=== PATIENT | female | born 1950 | race African-American/Black ===

== ENCOUNTER 2019-08-28 17:34 | Emergency (ER) | payer MEDICARE, SELFPAY ==
[2019-08-28 17:51] VITALS: BP 175/68; PULSE 77; RESP 16; TEMP 36.9; O2SAT 100
--- NOTE | 2019-08-28 17:55 | ED.GENADULT ---
HPI - General Adult General Chief complaint: Upper Respiratory Infection Stated complaint: Ear/Nose/Throat Time Seen by Provider: 08/28/19 17:56 Source: patient and RN notes reviewed Mode of arrival: ambulatory Limitations: no limitations History of Present Illness HPI narrative: This is a 69 years old female presents to the office for an evaluation of ears pain/pressure for three days. Associated with sore throat, headache/sinus pain. She took Mucinex which has helped with her congestion. She also try pusc-cpc-zyawubx eardrop which has helped her left ear a little bit that she can heal a bit better today. Related Data Home Medications Medication Instructions Recorded Confirmed allopurinol 1 mg PO DAILY 08/28/19 08/28/19 atorvastatin 1 mg DAILY 08/28/19 08/28/19 colchicine [Colcrys] 1 mg DAILY 08/28/19 08/28/19 dulaglutide [Trulicity] 1 mg SUBCUT DAILY 08/28/19 08/28/19 hydralazine 1 mg PO TID 08/28/19 08/28/19 insulin glargine [Lantus U-100 1 unit SUBCUT DAILY 08/28/19 08/28/19 Insulin] metoprolol succinate 1 mg PO DAILY 08/28/19 08/28/19 Allergies Allergy/AdvReac Type Severity Reaction Status Date / Time codeine Allergy Unknown Unknown Verified 08/28/19 17:59 tramadol Allergy Unknown Unknown Verified 08/28/19 17:59 Review of Systems Review of Systems: Narrative: CONSTITUTIONAL: Denies fever, chills ENT: Reports rhinorrhea, congestion, sore throat, otalgia. CARDIOVASCULAR: Denies chest pain RESPIRATORY: Denies dyspnea, cough GASTROINTESTINAL: Denies abdominal pain, nausea, vomiting, diarrhea. SKIN: Denies rash MUSCULOSKELETAL: Denies acute back pain NEUROLOGIC: Denies lightheaded PMFSH Past Medical History Medical History (Updated 08/28/19 @ 18:11 by ANGIE Barajas) Diabetes mellitus, type II HLD (hyperlipidemia) HTN (hypertension) Surgical History Surgical History (Updated 08/28/19 @ 18:02 by ANIGE Barajas) History of heart artery stent Social History Social History Gender identity (if verbalized by the patient): Female Comments At time of signature, I agree with nursing past medical, surgical, social and family history. There is no relevant family history pertinent to the presenting complaint. Exam Narrative: Exam Narrative: GENERAL: This is a well-nourished, well-developed patient, in no apparent distress. EYES: PERRL. EMOI. Sclera clear/white. Vision is grossly intact. EARS: External ears normal, auditory canals appears erythema and edematous with tragal tenderness. TMs normal without perforation. Hearing grossly intact. NOSE: External nose normal with no obvious nasal discharge, nares without redness, no rhinorrhea. THROAT: Mucous membranes moist, posterior pharynx clear. NECK: Neck supple, non-tender without lymphadenopathy, masses or thyromegaly. CARDIOVASCULAR: Regular rate and rhythm without murmurs, gallops, or rubs. RESPIRATORY: Clear to auscultation. Breath sounds equal bilaterally. No wheezes, rales, or rhonchi. NEURO: awake, alert, and oriented to person, place and time. There were no obvious focal neurologic abnormalities. Steady gait Ame Coma Scale Eye Opening: Spontaneous 4 [place] Coma Scale Motor: Obeys Commands 6 Ame Coma Scale Verbal: Oriented 5 Course Vital Signs Vital signs: Vital Signs Temperature 98.4 F 08/28/19 17:51 Pulse Rate 77 08/28/19 17:51 Respiratory Rate 16 08/28/19 17:51 Blood Pressure 175/68 H 08/28/19 17:51 Pulse Oximetry 100 08/28/19 17:51 Temperature 98.4 F 08/28/19 17:51 Pulse Rate 77 08/28/19 17:51 Respiratory Rate 16 08/28/19 17:51 Blood Pressure 175/68 H 08/28/19 17:51 Pulse Oximetry 100 08/28/19 17:51 Medical Decision Making MDM Narrative Medical decision making narrative: Elevated BP noted, I recommend patient follow-up with her doctor in 2 weeks to get her blood pressure rechecked. Discharge instructions reviewed w
== END 2019-08-28 18:15 | disposition home or self-care (01) ==
PROVIDERS: Emergency Provider Nurse Practitioner; PCP Internal Medicine
DX: H60.93 Unspecified otitis externa, bilateral (principal); J32.9 Chronic sinusitis, unspecified; E11.9 Type 2 diabetes mellitus without complications; E78.5 Hyperlipidemia, unspecified; I10 Essential (primary) hypertension; Z95.5 Presence of coronary angioplasty implant and graft; Z79.4 Long term (current) use of insulin
CPT/HCPCS: 87081; 87880; 99213; G0463

== ENCOUNTER 2020-10-18 14:29 | Emergency (ER) | payer MEDICARE, SELFPAY ==
[2020-10-18 14:40] VITALS: BP 121/63; PULSE 81; RESP 18; TEMP 36.3; O2SAT 100
--- NOTE | 2020-10-18 15:15 | ED.GENADULT ---
HPI - General Adult General Chief complaint: Urogenital-Female Stated complaint: uti Source: patient Mode of arrival: ambulatory Limitations: no limitations History of Present Illness HPI narrative: Mrs. Ramesh is a pleasant 70 y/o AA female. PMHx includes: HTN, HLD, DM II, Gout, Obesity. Presents to [facility] [place] [facility] today with acute complaints of urinary frequency and dysuria, worsening > the past 72 hours. She reports unusual urinary frequency. No fever, chills. No abdominal pain, pelvic pain, flank pain, hematuria. She is w/o additional acute complaints of illness upon exam. Related Data Home Medications Medication Instructions Recorded Confirmed allopurinol 1 mg PO DAILY 08/28/19 08/28/19 atorvastatin 1 mg DAILY 08/28/19 08/28/19 colchicine [Colcrys] 1 mg DAILY 08/28/19 08/28/19 dulaglutide [Trulicity] 1 mg SUBCUT DAILY 08/28/19 08/28/19 hydralazine 1 mg PO TID 08/28/19 08/28/19 insulin glargine [Lantus U-100 1 unit SUBCUT DAILY 08/28/19 08/28/19 Insulin] metoprolol succinate 1 mg PO DAILY 08/28/19 08/28/19 Benadryl 10/18/20 aspirin PO 10/18/20 dulaglutide [Trulicity] mg SUBCUT 10/18/20 gabapentin 10/18/20 glipizide mg PO 10/18/20 hydrocodone-acetaminophen 10/18/20 isosorbide mononitrate mg PO 10/18/20 omeprazole 10/18/20 Allergies Allergy/AdvReac Type Severity Reaction Status Date / Time codeine Allergy Unknown Unknown Verified 08/28/19 17:59 tramadol Allergy Unknown Unknown Verified 08/28/19 17:59 Review of Systems Review of Systems: CONSTITUTIONAL: Denies fever, chills, sweats. EYES: Denies visual changes, redness, discharge. ENT: Denies rhinorrhea, congestion, sore throat, otalgia. CARDIOVASCULAR: Denies chest pain, palpitations, edema. RESPIRATORY: Denies dyspnea, wheezing, cough GASTROINTESTINAL: Denies abdominal pain, nausea, vomiting, diarrhea. GENITOURINARY: Positive dysuria, urgency, frequency. No hematuria, abnormal discharge SKIN: Denies rash or itching. MUSCULOSKELETAL: Denies acute back pain, joint pain, or myalgia. NEUROLOGIC: Denies numbness, or focal weakness. PSYCHIATRIC: Denies anxiety or depression. All systems reviewed & are unremarkable except as noted in HPI and below PMFSH Past Medical History Medical History Diabetes mellitus, type II HLD (hyperlipidemia) HTN (hypertension) Surgical History Surgical History History of heart artery stent Social History Social History Gender identity (if verbalized by the patient): Female Exam Narrative: GENERAL: This is a well-nourished, well-developed adult, in no apparent distress. HEAD: normocephalic, atraumatic. EYES: PERRL. Sclera clear/white. EARS: External ears normal, auditory canals clear and without drainage, TMs normal. NOSE: External nose normal. Positive Rhinorrhea, no obstruction, nares patent. THROAT: Mucous membranes moist, posterior pharynx clear. No exudates. NECK: Neck supple, non-tender without lymphadenopathy, masses or thyromegaly. CARDIOVASCULAR: Regular rate and rhythm without murmurs, gallops, or rubs. RESPIRATORY: Clear to auscultation. Breath sounds equal bilaterally. No wheezes, rales, or rhonchi. GASTROINTESTINAL: Abdomen soft, non-tender, nondistended. Bowel sounds are active. No guarding. No CVA tenderness appreciated. SKIN: warm, intact with no suspicious lesions or rash, good texture and turgor. NEURO: Alert, active, and age appropriate. No focal neurologic deficits. EXTREMITIES: Negative. Course Course Emergency Course: -70 y/o AA female. -Presents with c/o urinary frequency, urgency, dysuria X 72 hours. -Appears non-toxic. Proceed with Urine Dipstick Vital Signs Vital signs: Vital Signs Temperature 36.3 C L 10/18/20 14:40 Pulse Rate 81 10/18/20 14:40 Respiratory Rate 18 10/18/20 14:40 Blood Pre
--- NOTE | 2020-10-18 15:39 | PC.NURSE ---
was given water, unable to give ua spec.
== END 2020-10-18 16:02 | disposition home or self-care (01) ==
PROVIDERS: Emergency Provider Nurse Practitioner Adult Health; PCP Internal Medicine
DX: N39.0 Urinary tract infection, site not specified (principal); E11.9 Type 2 diabetes mellitus without complications; E78.5 Hyperlipidemia, unspecified; I10 Essential (primary) hypertension; Z95.5 Presence of coronary angioplasty implant and graft; M10.9 Gout, unspecified; E66.9 Obesity, unspecified; Z68.35 Body mass index [BMI] 35.0-35.9, adult
CPT/HCPCS: 81003; 87086; 99213; G0463

== ENCOUNTER 2021-05-11 12:37 | Inpatient (IN) | payer MEDICARE, SELFPAY ==
[2021-05-11] VITALS (35 sets, daily range): BP systolic 92–153; BP diastolic 50–123; PULSE 78–94; RESP 12–22; TEMP 35.8–36.4; O2SAT 85–100; BMI 30.4
--- NOTE | ~2021-05-11 | XR_ITS ---
EXAMINATION: XR chest 1V INDICATION: Weakness TECHNIQUE: AP view of the chest is obtained. COMPARISON: 10/15/2018 FINDINGS: There is chronic atelectasis or scarring of the left lung base. No acute airspace opacities are identified. There is no pleural effusion or pneumothorax. The cardiomediastinal silhouette is st able. Coronary artery stents are noted. IMPRESSION: 1. Chronic atelectasis or scarring of the left lung base. Reviewed, dictated and finalized at location F. UR BURNER
--- NOTE | ~2021-05-11 | CT_ITS ---
EXAMINATION: CT brain wo con INDICATION: Weakness, headache, confusion COMPARISON: None TECHNIQUE: Standard unenhanced head CT. The dose-length product (DLP) was 605.33 mGy-cm. The mA was a djusted according to patient size. Iterative reconstruction technique was employed. FINDINGS: There is no acute intraparenchymal hemorrhage. No evidence of mass lesion. No evidence of a cute infarction. There is mild periventricular and subcortical hypodensity probably related to small vessel ischemic disease. There is mild prominence of the sulci and ventricles related to cerebral atr ophy. Intracranial calcified cerebral atherosclerosis is noted. There are no extra-axial collections. There is no mass effect or midline shift. The orbits and soft tissues are unremarkable. There is com plete opacification of the right maxillary sinus with sclerosis of the lynn, consistent with chronic sinusitis. IMPRESSION: 1. No acute intracranial abnormality. 2. Age related findings. 3. Sinus disease. Reviewed, dictated and finalized at location F. STITCH HEMMER
--- NOTE | ~2021-05-11 | MR_ITS ---
EXAMINATION: MR lumbar spine wo con DATE: 05/12/2021 10:28 INDICATION: Lumbar posterior spinal fusion with suspected osteomyelitis. TECHNIQUE: Magnetic resonance imaging (MRI) of the lumbar spine was performed without intravenous con trast. Sequences included sagittal T2-weighted FSE, sagittal T2-weighted FS FSE, sagittal T1-weighted FSE, and axial T2-weighted FSE. COMPARISON: None FINDINGS: Study is significantly limited by poor uusuzg-ra-ozfga, some motion artifact and poor fat saturation. Postoperative changes of instrumented lower lumbar posterior spinal . There are bilateral vertical r ods and pedicle screws which appear to be located at the bilateral L3 pedicles and at the level of L5 . With the screws projecting slightly lateral to the expected location of the L5 pedicles. There is m ild lower lumbar levocurvature. Appears to be increased marrow signal in the region of the left pedic le and transverse process of L4 which raises concern for malignancy or osteomyelitis. Also raising barlow spicion for ostomy myelitis is suggestion of an erosion at the left posterior body of L3. IMPRESSION: 1. Nondiagnostic study due to poor urinnt-jx-resqn, motion and failed fat saturation which nonetheles s raises some concern for osteomyelitis associated with a instrumented lower lumbar posterior spinal fusion specifically at the left pedicle of L4 and at the right posterior vertebral body of L3. Would recommend further evaluation with pre and postcontrast lumbar spine CT. Reviewed, dictated and finalized at location A. S UNLOADING EQUIPMENT TENDER IMPRESSION: 1. Nondiagnostic study due to poor crabit-kj-wqvke, motion and failed fat satur ation which nonetheless raises some concern for osteomyelitis associated with a instrumented lower lumbar posterior spinal fusion specifically at the left ped icle of L4 and at the right posterior vertebral body of L3. Would recommend fur ther evaluation with pre and postcontrast lumbar spine CT.
--- NOTE | ~2021-05-11 | CT_ITS ---
EXAMINATION: CT cervical spine wo con EXAM DATE: 05/12/2021 19:32 INDICATION: Cervical spondylosis. Weakness. TECHNIQUE: Spiral CT of the cervical spine was performed without contrast. Axial images were reviewe d. Coronal and sagittal reformatted images cervical spine were also reviewed. The dose-length produc t (DLP) for this examination was 523.49 mGy-cm. The exposure was tailored according to patient size (auto mA exposure control), and iterative reconstruction (ASIR) was used as additional dose reduction technique. There is no prior study for comparison. FINDINGS: No endplate erosive change, cervical discitis or osteomyelitis. The C2-5 vertebral bodies a re fused. There is moderate to severe loss of the lower cervical and upper thoracic disc height. Ther e is moderate to severe right neural foraminal stenosis at C5-6 and left neural foraminal stenosis at C6-7, less at the other cervical levels. Mild cervical thoracic dextrocurvature which could be posit ional. The odontoid process is intact. The lateral masses of C1 line up with C2. Prevertebral soft t issue and pre-dens space are within normal limits. Moderate to severe cervical facet arthropathy. Mil d to moderate central canal stenosis at C6-7, less at the other levels. Paraspinal soft tissue is unr emarkable. IMPRESSION: 1. No acute cervical findings. 2. Upper cervical fusion. 3. Arthropathy with the right C5-6 and left C6-7 neural foramen most narrowed. Reviewed, dictated and finalized at location G. AND COAL TRANSPORT OPERATOR
--- NOTE | ~2021-05-11 | CT_ITS ---
EXAMINATION: CT thoracic lumbar wo con EXAM DATE: 05/12/2021 19:32 INDICATION: Abnormal MR concerning for discitis/osteomyelitis. Spinal surgery, wound not healing. TECHNIQUE: Spiral CT thoracolumbar spine was performed without contrast. Axial, coronal and sagittal images of the thoracic spine were reviewed. Axial, coronal and sagittal images of the lumbar spine we re reviewed. The dose-length product (DLP) for this examination was 2135.84 mGy-cm. The exposure was tailored according to patient size (auto mA exposure control), and iterative reconstruction (ASIR) w as used as additional dose reduction technique. Correlation is made to MR from earlier same date. FINDINGS: THORACIC SPINE: Patient has diffuse idiopathic skeletal hyperostosis (DISH), moderate-sized bridging endplate osteophytes. Mild mid thoracic dextroscoliosis. There are no acute fractures identified no e ndplate erosive change, no evidence of discitis or osteomyelitis. Moderate loss of most thoracic disc height. Mild thoracic facet arthropathy. Paraspinal soft tissue is unremarkable. Basilar dependent a irspace disease probably atelectasis. Cholecystectomy clips. LUMBAR SPINE: Partial osseous fusion of the L3-4 vertebral bodies and L5-S1. Posterior pedicular scre ws, fusion at the L3 and L5 pedicles. There is endplate erosive change at L3-4, subsidence of interbo dy devices and also 12 mm retrolisthesis L3 on L4. Probably moderate central canal stenosis at this l evel although patient has had L3 laminectomies. There is lordotic angulation at L3-4. Large amount of lucency surrounding the L5 screws. Some paraspinal inflammation suspected centered at the L3-4 level . There are no acute fractures identified. IMPRESSION: 1. Findings highly suspicious for L3-4 discitis/osteomyelitis, lucency surrounding L5 pedicular screw s also suspicious for infection. Paraspinal inflammation. 2. L3-4 grade 2 retrolisthesis, and probable moderate central canal stenosis but patient has had L3 l aminectomies. Reviewed, dictated and finalized at location G. IMPRESSION: 1. Findings highly suspicious for L3-4 discitis/osteomyelitis, lucency surround ing L5 pedicular screws also suspicious for infection. Paraspinal inflammation. 2. L3-4 grade 2 retrolisthesis, and probable moderate central canal stenosis bu t patient has had L3 laminectomies.
--- NOTE | 2021-05-11 14:50 | ECG_ITS ---
Measurements Intervals [place] Rate: 81 P: 79 LA: 169 QRS: -15 QRSD: 113 T: 19 QT: 396 QTc: 462 Interpretive Statements SINUS RHYTHM INTRAVENTRICULAR CONDUCTION DELAY BORDERLINE R WAVE PROGRESSION, ANTERIOR LEADS INFERIOR INFARCT, AGE INDETERMINATE BASELINE ARTIFACT- I, II, AVR, AVL, V1-V2, V6 ABNORMAL ECG Electronically Signed On 05-11-2021 18:12:38 MARKETING SECRETARY by Ricardo Razo D.O.
--- NOTE | 2021-05-11 14:51 | ED.WEAKNESS ---
HPI - Weakness General Chief complaint: Weakness Stated complaint: weakness Time Seen by Provider: 05/11/21 14:14 Source: patient and RN notes reviewed Mode of arrival: EMS Limitations: other (poor historian) History of Present Illness HPI Narrative: This is a 71 year female with history of DM, hypertension, spinal stenosis , nonambulatory who presents from skilled nursing for evaluation for weakness. Patient is alert and oriented x 3. She states she thinks she is here for low back pain but she is not sure. She remembers going to eat breakfast today and then next thing she knows she was in an ambulance. EMS reports patient told them she was confused earlier so she came to ER. She states her low back pain is chronic back pain. She does reports intermittent frontal headache for 2 weeks. She denies cough, chest pain, sob, nausea, vomiting, or abdominal pain. She denies falling or passing out. It seems unclear why she is here. MD Complaint: generalized weakness Related Data Home Medications Medication Instructions Recorded Confirmed acetaminophen 650 mg PO QID PRN 05/11/21 05/11/21 albuterol sulfate 2 puff INHALATION Q4H PRN 05/11/21 05/11/21 allopurinol 100 mg PO DAILY 05/11/21 05/11/21 amlodipine 10 mg PO DAILY 05/11/21 05/11/21 ascorbic acid (vitamin C) [Vitamin 500 mg PO BID 05/11/21 05/11/21 C] aspirin [Aspir-81] 81 mg PO DAILY 05/11/21 05/11/21 atorvastatin 40 mg PO HS 05/11/21 05/11/21 cholecalciferol (vitamin D3) 50 mcg PO DAILY 05/11/21 05/11/21 [Vitamin D3] cyanocobalamin (vitamin B-12) 1,000 mcg PO DAILY 05/11/21 05/11/21 [Vitamin B-12] docusate sodium 100 mg PO BID 05/11/21 05/11/21 dulaglutide [Trulicity] 1.5 mg SUBCUT WEEKLY 05/11/21 05/11/21 epoetin sosa-epbx [Retacrit] 10,000 unit SUBCUT WEEKLY 05/11/21 05/11/21 ferrous sulfate 325 mg PO BID 05/11/21 05/11/21 folic acid 1 mg PO DAILY 05/11/21 05/11/21 insulin glargine-yfgn 20 unit SUBCUT HS 05/11/21 05/11/21 insulin lispro See Rx Instructions .ROUTE .COMPLEX 05/11/21 05/11/21 linaclotide [Linzess] 290 mcg PO DAILY 05/11/21 05/11/21 metoclopramide HCl 5 mg PO BID 05/11/21 05/11/21 metoprolol succinate 100 mg PO DAILY 05/11/21 05/11/21 minocycline 100 mg PO BID 05/11/21 05/11/21 nitroglycerin 4 mg SUBLINGUAL Q5MIN PRN 05/11/21 05/11/21 olanzapine 5 mg PO HS 05/11/21 05/11/21 ondansetron HCl 4 mg PO QID PRN 05/11/21 05/11/21 oxycodone 5 mg PO Q4H PRN 05/11/21 05/11/21 pantoprazole 40 mg PO DAILY 05/11/21 05/11/21 peg 400-propylene glycol [Systane 1 drp EACH EYE TID PRN 05/11/21 05/11/21 Ultra] polyethylene glycol 1 ea MISCELLANEOUS DAILY PRN 05/11/21 05/11/21 promethazine 25 mg PO QID PRN 05/11/21 05/11/21 sennosides-docusate sodium 1 tab-cap PO BID PRN 05/11/21 05/11/21 [Senokot-S] sodium hypochlorite [Dakin's 1 applic TOPICAL Q12H 05/11/21 05/11/21 Solution] Allergies Allergy/AdvReac Type Severity Reaction Status Date / Time codeine Allergy Unknown Unknown Verified 05/11/21 14:25 tramadol Allergy Unknown Unknown Verified 05/11/21 14:25 Review of Systems Review of Systems: All systems reviewed & are unremarkable except as noted in HPI and below PMFSH Past Medical History Medical History (Updated 05/11/21 @ 22:00 by Kaity Zendejas MD) Diabetes mellitus, type II HLD (hyperlipidemia) HTN (hypertension) Spinal stenosis Surgical History Surgical History History of heart artery stent Hx of cholecystectomy Previous back surgery Family History Family History Mother Hypertension Diabetes mellitus Gout Arthritis Social History Social History Smoking status: Never smoker Alcohol intake: never Substance use: never Gender identity (if verbalized by the patient): Female Spiritual care concerns: Yes (johovah witness no blood products)
--- NOTE | 2021-05-11 15:02 | PC.NURSE ---
Patient off unit to Radiology.
[2021-05-11 15:22] LABS: Basophils Percent Auto 0.2 % (0.2-1.2); Eosinophils Absolute Auto 0.1 K/mm3 (0-0.3); Eosinophils Percent Auto 0.4 % (0-4.4); Hemoglobin 9.1 g/dL (12.0-15.0); Immature Granulocyte Percent A 0.9 % (0-0.5); Lymphocytes Absolute Auto 1.98 K/mm3 (0.9-3.2); Mean Corpuscular HGB Conc 32.5 g/dl (32-36); Mean Corpuscular Volume 89.2 fl (80-100); Mean Platelet Volume 10.4 fl (7.4-10.4); Monocytes Absolute Auto 0.9 K/mm3 (0.1-0.6); Monocytes Percent Auto 7.5 % (2.6-8.5); Neutrophils Absolute Auto 8.6 K/mm3 (1.3-6.7); Platelet Count Result 182 k/mm3 (150-375); Red Blood Count 3.14 M/mm3 (4.2-5.4); Red Cell Distribution Width 18.6 % (11.5-14.5); White Blood Count 11.7 K/mm3 (4.5-10.0)
[2021-05-11 15:31] LABS: Lactic Acid Reflex 2.3 mmol/L (0.7-2.1)
[2021-05-11 15:32] LABS: Prothrombin Time 12.9 Seconds (11.1-14.7)
[2021-05-11 15:33] LABS: Alanine Aminotransferase 20 U/L (4-35); Albumin Level 4.1 g/dL (3.5-5.1); Alkaline Phosphatase 76 U/L (38-126); Anion Gap 13 mmol/L (8-16); Aspartate Amino Transferase 45 U/L (14-36); Bilirubin,Total 0.6 mg/dL (0.2-1.3); Blood Urea Nitrogen 33 mg/dL (7-17); Carbon Dioxide 26 mmol/L (22-30); Chloride 100 mmol/L (98-107); Estimated CRCL calculation 25 ml/min; Estimated Glomerular Filt Rate 24; Glucose 223 mg/dL (65-110); Lipase 81 U/L (23-300); Partial Thromboplastin Time 29.3 SECONDS (22.3-36.8); Potassium 4.2 mmol/L (3.4-5.0); Sodium 139 mmol/L (137-145)
[2021-05-11 15:45] LABS: Add Urine Microscopic? YES; Appearance Urine Turbid (Clear); Bacteria Urine Trace /hpf; Bilirubin Urine Negative (Negative); Blood Urine Negative (Negative); Color Urine Yellow (Yellow); Glucose Urine UA Negative (Negative); Ketones Urine Negative (Negative); Leukocyte Esterase Ur 3+ LEU/UL (Negative); Nitrate Urine Negative (Negative); Protein Urine 2+ mg/dL (Negative); Specific Grav Ur 1.009 (1.001-1.035); Squamous Epithelial Cell Urine Moderate /hpf (Few); WBC Clumps Urine Present /HPF; WBC Urine >75 /hpf
[2021-05-11 15:47] LABS: Troponin I < 0.012 ng/mL (0.000-0.034)
[2021-05-11] MEDS: SODIUM CHLORIDE 0.9% IV 1,000 ML 999 ML IV CONT (16:21)
[2021-05-11] MEDS: oxyCODONE HCL (*CRX) 5 MG TAB IR PO ×2 (17:17→22:09)
[2021-05-11 18:20] LABS: Reflex Lactic Acid Yes or No Add Lactic
--- NOTE | 2021-05-11 18:58 | ADMGEN ---
This patient, Mahsa Ramesh, was admitted to 2 Medical Room 244-. Patient/family oriented to hospital policies and general routines including ID bracelet, bed and alarms, visiting hours, pain management, procedures, bathroom and other care routines, personal items, smoking policy, room service/diet, and visiting hours. Information on how to activate the Rapid Response Team has been discussed. Patient/Family are encouraged to report perceived risks to care and to ask questions if they do not understand what they are told or what they should do.
[2021-05-11] MEDS: SODIUM CHLORIDE 0.9% IV 1,000 ML 125 ML IV CONT (19:26)
[2021-05-11 19:29] LABS: Lactic Acid 1.5 mmol/L (0.7-2.1)
--- NOTE | 2021-05-11 20:19 | PM.IMHP ---
H&P: HPI History of Present Illness Date/Time: 05/11/21 20:19 Chief Complaint: 71 years old female with past medical history of diabetes, hypertension spinal stenosis with multiple surgical intervention with open wound presented to the hospital with generalized weakness back pain confusion her confusion has significantly improved patient complains of chronic pain in the back patient on oxycodone at the facility and the ER patient was found to have UTI also on my evaluation patient has wounds to the lower back wound Care was consulted CT scan of the back will be ordered orthopedic consult Review of Systems Review of Systems: All systems reviewed & are unremarkable except as noted in HPI and below PMFSH Past Medical History Medical History (Updated 05/11/21 @ 20:25 by Melisa Montemayor MD) Diabetes mellitus, type II HLD (hyperlipidemia) HTN (hypertension) Spinal stenosis Surgical History Surgical History History of heart artery stent Hx of cholecystectomy Previous back surgery Family History Family History Mother Hypertension Diabetes mellitus Gout Arthritis Social History Social History Smoking status: Never smoker Alcohol intake: never Substance use: never Gender identity (if verbalized by the patient): Female Spiritual care concerns: Yes (johovah witness no blood products) Meds Home Medications and Allergies Home Medications Medication Instructions Recorded Confirmed Type acetaminophen 650 mg PO QID PRN 05/11/21 History albuterol sulfate 2 puff INHALATION Q4H PRN 05/11/21 History allopurinol 100 mg PO DAILY 05/11/21 History amlodipine 10 mg PO DAILY 05/11/21 History ascorbic acid (vitamin C) [Vitamin 500 mg PO BID 05/11/21 History C] aspirin [Aspir-81] 81 mg PO DAILY 05/11/21 History atorvastatin 40 mg PO HS 05/11/21 History cholecalciferol (vitamin D3) 50 mcg PO DAILY 05/11/21 History [Vitamin D3] cyanocobalamin (vitamin B-12) 1,000 mcg PO DAILY 05/11/21 History [Vitamin B-12] docusate sodium 100 mg PO BID 05/11/21 History dulaglutide [Trulicity] 1.5 mg SUBCUT WEEKLY 05/11/21 History epoetin sosa-epbx [Retacrit] 10,000 unit SUBCUT WEEKLY 05/11/21 History ferrous sulfate 325 mg PO BID 05/11/21 History folic acid 1 mg PO DAILY 05/11/21 History insulin glargine-yfgn 20 unit SUBCUT HS 05/11/21 History insulin lispro SUBCUT TIDWMEAL 05/11/21 History linaclotide [Linzess] 290 mcg PO DAILY 05/11/21 History metoclopramide HCl 5 mg PO BID 05/11/21 History metoprolol succinate 100 mg PO DAILY 05/11/21 History minocycline 100 mg PO BID 05/11/21 History nitroglycerin 4 mg SUBLINGUAL Q5MIN PRN 05/11/21 History olanzapine 5 mg PO HS 05/11/21 History ondansetron HCl 4 mg PO QID PRN 05/11/21 History oxycodone 5 mg PO Q4H PRN 05/11/21 History pantoprazole 40 mg PO DAILY 05/11/21 History peg 400-propylene glycol [Systane 1 drp EACH EYE TID PRN 05/11/21 History Ultra] polyethylene glycol 1 ea DAILY 05/11/21 History promethazine 25 mg PO QID PRN 05/11/21 History sennosides-docusate sodium 1 tab-cap PO BID PRN 05/11/21 History [Senokot-S] Allergies Allergy/AdvReac Type Severity Reaction Status Date / Time codeine Allergy Unknown Unknown Verified 05/11/21 14:25 tramadol Allergy Unknown Unknown Verified 05/11/21 14:25 Vital Signs Vital Signs - 24 hr 05/11/21 13:24 05/11/21 14:25 05/11/21 14:26 Temperature 96.5 F L Pulse Rate 78 87 88 Respiratory Rate 19 18 20 Blood Pressure 92/50 L 127/100 H Pulse Oximetry 100 100 85 L 05/11/21 14:27 05/11/21 14:30 05/11/21 14:32 Temperature Pulse Rate 88 86 82 Respiratory Rate 21 H 18 16 Blood Pressure 104/61 Pulse Oximetry 100 100 05/11/21 14:45 05/11/21 14:46 05/11/21 14:47 Temperature Pulse Rate 83 8
[2021-05-11 20:25] LABS: Glucose Point of Care 266 mg/dl (65-105)
[2021-05-11] MEDS: INSULIN GLARGINE (*BKC) 100 UNITS/ML 10 UNITS SUB-Q (22:04)
[2021-05-11] MEDS: ATORVASTATIN 40 MG TABLET PO (22:04)
[2021-05-11] MEDS: ASCORBIC ACID 500 MG TABLET PO (22:04)
[2021-05-11] MEDS: DOCUSATE SODIUM 100 MG CAPSULE PO (22:05)
[2021-05-11] MEDS: OLANZapine DISPERTAB 5 MG PO (22:05)
[2021-05-11] MEDS: ENOXAPARIN 40 MG/0.4 ML SYRINGE SUB-Q (22:05)
[2021-05-11] MEDS: MINOCYCLINE HCL 50 MG CAPSULE 100 MG PO (23:30)
[2021-05-11] MEDS: ACETAMINOPHEN 325 MG TABLET 650 MG PO (23:32)
[2021-05-12 05:31] VITALS: BP 133/66; PULSE 76; RESP 18; TEMP 36.8; O2SAT 100
[2021-05-12 06:06] LABS: Basophils Percent Auto 0.1 % (0.2-1.2); Eosinophils Absolute Auto 0.1 K/mm3 (0-0.3); Eosinophils Percent Auto 0.9 % (0-4.4); Hematocrit 22.2 % (37.0-47.0); Hemoglobin 7.3 g/dL (12.0-15.0); Immature Granulocyte Absolute 0.06 K/mm3 (0.00-0.031); Immature Granulocyte Percent A 0.7 % (0-0.5); Lymphocytes Absolute Auto 2.07 K/mm3 (0.9-3.2); Lymphocytes Percent Auto 24.5 % (18.3-44.2); Mean Corpuscular HGB Conc 32.9 g/dl (32-36); Mean Corpuscular Hemoglobin 29.2 pg (26-34); Mean Corpuscular Volume 88.8 fl (80-100); Mean Platelet Volume 11.6 fl (7.4-10.4); Monocytes Absolute Auto 1.1 K/mm3 (0.1-0.6); Monocytes Percent Auto 12.5 % (2.6-8.5); Neutrophils Absolute Auto 5.2 K/mm3 (1.3-6.7); Neutrophils Percent Auto 61.3 % (45.5-73.1); Platelet Count Result 158 k/mm3 (150-375); Red Cell Distribution Width 18.5 % (11.5-14.5); White Blood Count 8.5 K/mm3 (4.5-10.0)
[2021-05-12 06:21] LABS: Alanine Aminotransferase 15 U/L (4-35); Albumin Level 3.3 g/dL (3.5-5.1); Alkaline Phosphatase 56 U/L (38-126); Anion Gap 7 mmol/L (8-16); Aspartate Amino Transferase 28 U/L (14-36); Bilirubin,Total 0.5 mg/dL (0.2-1.3); Blood Urea Nitrogen 35 mg/dL (7-17); Calcium 8.5 mg/dL (8.4-10.2); Carbon Dioxide 27 mmol/L (22-30); Chloride 101 mmol/L (98-107); Estimated CRCL calculation 28 ml/min; Estimated Glomerular Filt Rate 28; Glucose 172 mg/dL (65-110); Potassium 3.7 mmol/L (3.4-5.0); Sodium 135 mmol/L (137-145)
[2021-05-12] MEDS: METOCLOPRAMIDE HCL 5 MG TABLET PO ×2 (06:35→16:53)
[2021-05-12] MEDS: SODIUM CHLORIDE 0.9% IV 1,000 ML 125 ML IV CONT ×2 (06:36→19:45)
[2021-05-12 07:53] LABS: Cholesterol 130 mg/dL (0-200); HDL Direct 21 mg/dL; Triglycerides 128 mg/dL (<150)
[2021-05-12 08:02] LABS: Glucose Point of Care 156 mg/dl (65-105)
[2021-05-12 08:04] LABS: LDL Cholesterol Direct 70 mg/dL
[2021-05-12 08:21] LABS: Lactate Dehydrogenase 516 U/L (313-618)
[2021-05-12 08:31] LABS: Transferrin 140 mg/dL (206-381)
[2021-05-12 08:47] LABS: Iron 35 ug/dL (37-170)
[2021-05-12 08:57] LABS: Percent Iron Saturation 18 % (20-50)
[2021-05-12] MEDS: PANTOPRAZOLE 40 MG TABLET PO (08:59)
[2021-05-12] MEDS: amLODIPine BESYLATE 5 MG TABLET 10 MG PO (08:59)
[2021-05-12] MEDS: MINOCYCLINE HCL 50 MG CAPSULE 100 MG PO ×2 (08:59→19:48)
[2021-05-12] MEDS: CHOLECALCIFEROL 1,000 UNITS TABLET 2000 UNITS PO (08:59)
[2021-05-12] MEDS: ASCORBIC ACID 500 MG TABLET PO ×2 (09:00→19:48)
[2021-05-12] MEDS: allopurinoL 100 MG TABLET PO (09:00)
[2021-05-12] MEDS: ASPIRIN 81 MG ENTERIC TABLET PO (09:00)
[2021-05-12] MEDS: DOCUSATE SODIUM 100 MG CAPSULE PO (09:00)
[2021-05-12] MEDS: FOLIC ACID 1 MG TABLET PO (09:00)
[2021-05-12] MEDS: CYANOCOBALAMIN 1,000 MCG TABLET 1000 MCG PO (09:00)
[2021-05-12] MEDS: METOPROLOL SUCCINATE EXT REL 100 MG TABCR PO (09:01)
[2021-05-12] MEDS: SILVERGEL (ELTA) 45 ML 1 APPLIC TOPICAL (09:07)
[2021-05-12] MEDS: oxyCODONE HCL (*CRX) 5 MG TAB IR PO ×3 (09:09→22:10)
[2021-05-12 09:34] LABS: Folic Acid > 20.0 ng/mL (2.76->20); Vitamin B12 > 1000.0 pg/mL (239-931)
[2021-05-12 12:21] LABS: Glucose Point of Care 151 mg/dl (65-105)
--- NOTE | 2021-05-12 12:30 | P.PNIM_ITS ---
Progress Note: A&P Assessment and Plan (1) Acute metabolic encephalopathy: Code(s): G93.41 - Metabolic encephalopathy Status: Acute Assessment and Plan: * Resolved at this time * Most likely related to UTI * IV antibiotics Zosyn and Vanco * Head CT no acute findings, sinus disease * Trend labs * WBC are normal at 8.5 * Trend mental status (2) Spinal stenosis: Code(s): M48.00 - Spinal stenosis, site unspecified Status: Inactive Assessment and Plan: * Status post multiple surgical intervention * open wound noted on the back * Wound culture pending * Wound care consult * IV Zosyn and Vanc on board * MRI of the spine not able to determine if the patient has osteomylitis * CT with and without ordered. (3) HTN (hypertension): Code(s): I10 - Essential (primary) hypertension Status: Acute Assessment and Plan: * BP 133/66 * Continue home Amlodipine, metoprolol * Trend BP * Adjust medications as indicated (4) HLD (hyperlipidemia): Code(s): E78.5 - Hyperlipidemia, unspecified Status: Acute Assessment and Plan: * Obtain lipid panel * Started atorvastatin (5) Diabetes mellitus, type II: Code(s): E11.9 - Type 2 diabetes mellitus without complications Status: Acute Assessment and Plan: * Glucose 172 * Insulin sliding scale * Continue home lantus 20 units HS * Hold trulicity since it is nonformulary * Trend glucose * Adjust therapy as indicated (6) UTI (urinary tract infection): Code(s): N39.0 - Urinary tract infection, site not specified Status: Acute Assessment and Plan: * UA Turbid yellow, 3+ leukocyte esterase, >75 WBC, WBC clumps Present, trace bacteria * Broad-spectrum IV antibiotics * Urine culture pending * WBC 8.5 * Trend output (7) Acute kidney injury: Code(s): N17.9 - Acute kidney failure, unspecified Status: Acute Assessment and Plan: * BUN/Cr 35/2.10 * Baseline Cr 1.30-1.50 * IV fluids * Trend labs * Consider nephrology if no improvement * Consider ultrasound if indicated (8) Anemia: Code(s): D64.9 - Anemia, unspecified Status: Acute Assessment and Plan: * H/H 7.3/22.2 * Anemia labs pending * Continue home folic acid, ferrous sulfate, and B12 * Probably anemia of chronic disease as patient is also on retacrit (9) Neurogenic bladder: Code(s): N31.9 - Neuromuscular dysfunction of bladder, unspecified Status: Acute Assessment and Plan: * Reports urinary retention * Straight cathed x 3 at [facility] * Start on tamsulosin * Trend urine output * PRN bladder scan Time Spent With Patient Time with patient: Greater than 35 minutes Subjective Date/time seen: 05/12/21 1230 Interval history: Date/Time: 05/11/21 20:19 Chief Complaint: 71 years old female with past medical history of diabetes, hypertension spinal stenosis with multiple surgical intervention with open wound presented to the hospital with generalized weakness back pain confusion her confusion has significantly improved patient complains of chronic pain in the back patient on oxycodone at the facility and the ER patient was found to have UTI also on my evaluation patient has wounds to the lower back wound Care was consulted CT scan
--- NOTE | 2021-05-12 12:30 | PM.IMPN ---
Progress Note: A&P Assessment and Plan (1) Acute metabolic encephalopathy: Code(s): G93.41 - Metabolic encephalopathy Status: Acute Assessment and Plan: Resolved at this time Most likely related to UTI IV antibiotics Zosyn and Vanco Head CT no acute findings, sinus disease Trend labs WBC are normal at 8.5 Trend mental status (2) Spinal stenosis: Code(s): M48.00 - Spinal stenosis, site unspecified Status: Inactive Assessment and Plan: Status post multiple surgical intervention open wound noted on the back Wound culture pending Wound care consult IV Zosyn and Vanc on board MRI of the spine not able to determine if the patient has osteomylitis CT with and without ordered. (3) HTN (hypertension): Code(s): I10 - Essential (primary) hypertension Status: Acute Assessment and Plan: BP 133/66 Continue home Amlodipine, metoprolol Trend BP Adjust medications as indicated (4) HLD (hyperlipidemia): Code(s): E78.5 - Hyperlipidemia, unspecified Status: Acute Assessment and Plan: Obtain lipid panel Started atorvastatin (5) Diabetes mellitus, type II: Code(s): E11.9 - Type 2 diabetes mellitus without complications Status: Acute Assessment and Plan: Glucose 172 Insulin sliding scale Continue home lantus 20 units HS Hold trulicity since it is nonformulary Trend glucose Adjust therapy as indicated (6) UTI (urinary tract infection): Code(s): N39.0 - Urinary tract infection, site not specified Status: Acute Assessment and Plan: UA Turbid yellow, 3+ leukocyte esterase, >75 WBC, WBC clumps Present, trace bacteria Broad-spectrum IV antibiotics Urine culture pending WBC 8.5 Trend output (7) Acute kidney injury: Code(s): N17.9 - Acute kidney failure, unspecified Status: Acute Assessment and Plan: BUN/Cr 35/2.10 Baseline Cr 1.30-1.50 IV fluids Trend labs Consider nephrology if no improvement Consider ultrasound if indicated (8) Anemia: Code(s): D64.9 - Anemia, unspecified Status: Acute Assessment and Plan: H/H 7.3/22.2 Anemia labs pending Continue home folic acid, ferrous sulfate, and B12 Probably anemia of chronic disease as patient is also on retacrit (9) Neurogenic bladder: Code(s): N31.9 - Neuromuscular dysfunction of bladder, unspecified Status: Acute Assessment and Plan: Reports urinary retention [facility]ight [facility]hed x 3 at [facility] Start on tamsulosin Trend urine output PRN bladder scan Time Spent With Patient Time with patient: Greater than 35 minutes Subjective Date/time seen: 05/12/21 1230 Interval history: Date/Time: 05/11/21 20:19 Chief Complaint: 71 years old female with past medical history of diabetes, hypertension spinal stenosis with multiple surgical intervention with open wound presented to the hospital with generalized weakness back pain confusion her confusion has significantly improved patient complains of chronic pain in the back patient on oxycodone at the facility and the ER patient was found to have UTI also on my evaluation patient has wounds to the lower back wound Care was consulted CT scan of the back will be ordered orthopedic consult. Date/Time 05/12/21 1230 Patient is doing ok today. She denies severe pain. She did state that she is having some dull pain. She is mostly complaining of pain and burning with urination. She stated that she has been having problems with the ability to urinate, and that she was straight cathed three times. Otherwise she denies any chest pain, shortness of breath, nausea, vomiting, diarrhea, constipation. Review of Systems Review of Systems: All systems reviewed & are unremarkable except as noted in HPI and below Exam Const: General: cooperative, health
[2021-05-12] MEDS: TAMSULOSIN HCL 0.4 MG CAPSULE PO (14:36)
[2021-05-12 14:52] VITALS: BP 130/65; PULSE 88; RESP 16; TEMP 37.2; O2SAT 100
[2021-05-12 16:49] LABS: Glucose Point of Care 162 mg/dl (65-105)
[2021-05-12] MEDS: ACETAMINOPHEN 325 MG TABLET 650 MG PO ×2 (17:42→23:43)
[2021-05-12] MEDS: MENTHOL 10% / METHYL SALICYLATE 15% 57 GM TUBE 1 APPLIC TOPICAL (18:34)
[2021-05-12] MEDS: OLANZapine DISPERTAB 5 MG PO (19:48)
[2021-05-12] MEDS: ATORVASTATIN 40 MG TABLET PO (19:48)
[2021-05-12] MEDS: ENOXAPARIN 40 MG/0.4 ML SYRINGE SUB-Q (19:49)
[2021-05-12 19:58] VITALS: PULSE 97; O2SAT 90
[2021-05-12 20:00] VITALS: PULSE 91; RESP 20; O2SAT 96
[2021-05-12] MEDS: INSULIN GLARGINE (*BKC) 100 UNITS/ML 10 UNITS SUB-Q (20:08)
[2021-05-12 20:47] LABS: Glucose Point of Care 233 mg/dl (65-105)
[2021-05-12 22:00] VITALS: BP 141/57; PULSE 91; RESP 20; TEMP 36.9; O2SAT 96
[2021-05-13] MEDS: oxyCODONE HCL (*CRX) 5 MG TAB IR PO ×5 (02:36→23:25)
[2021-05-13] MEDS: SODIUM CHLORIDE 0.9% IV 1,000 ML 125 ML IV CONT (04:27)
[2021-05-13] MEDS: METOCLOPRAMIDE HCL 5 MG TABLET PO ×2 (05:19→16:30)
[2021-05-13 06:00] VITALS: BP 146/63; PULSE 84; RESP 14; TEMP 36.6; O2SAT 99
[2021-05-13 06:14] LABS: Basophils Percent Auto 0.1 % (0.2-1.2); Eosinophils Absolute Auto 0.1 K/mm3 (0-0.3); Eosinophils Percent Auto 1.8 % (0-4.4); Immature Granulocyte Absolute 0.03 K/mm3 (0.00-0.031); Immature Granulocyte Percent A 0.4 % (0-0.5); Lymphocytes Absolute Auto 2.19 K/mm3 (0.9-3.2); Lymphocytes Percent Auto 32.6 % (18.3-44.2); Mean Corpuscular HGB Conc 32.9 g/dl (32-36); Mean Corpuscular Hemoglobin 28.4 pg (26-34); Mean Corpuscular Volume 86.4 fl (80-100); Mean Platelet Volume 11.4 fl (7.4-10.4); Monocytes Absolute Auto 0.8 K/mm3 (0.1-0.6); Monocytes Percent Auto 12.2 % (2.6-8.5); Neutrophils Absolute Auto 3.6 K/mm3 (1.3-6.7); Neutrophils Percent Auto 52.9 % (45.5-73.1); Platelet Count Result 157 k/mm3 (150-375); Red Blood Count 2.43 M/mm3 (4.2-5.4); Red Cell Distribution Width 18.3 % (11.5-14.5); White Blood Count 6.7 K/mm3 (4.5-10.0)
[2021-05-13 06:18] LABS: Hemoglobin 6.9 g/dL (12.0-15.0)
[2021-05-13 06:22] LABS: Alanine Aminotransferase 14 U/L (4-35); Albumin Level 3.2 g/dL (3.5-5.1); Alkaline Phosphatase 52 U/L (38-126); Anion Gap 7 mmol/L (8-16); Aspartate Amino Transferase 29 U/L (14-36); Bilirubin,Total 0.6 mg/dL (0.2-1.3); Blood Urea Nitrogen 28 mg/dL (7-17); Calcium 8.2 mg/dL (8.4-10.2); Carbon Dioxide 26 mmol/L (22-30); Chloride 105 mmol/L (98-107); Estimated CRCL calculation 28 ml/min; Estimated Glomerular Filt Rate 28; Glucose 107 mg/dL (65-110); Magnesium 1.1 mg/dL (1.6-2.3); Potassium 3.6 mmol/L (3.4-5.0); Sodium 138 mmol/L (137-145)
--- NOTE | 2021-05-13 06:39 | PC.NURSE ---
called and left message with dr elaine re: low [facility]h.
--- NOTE | 2021-05-13 06:45 | PM.IMPN ---
Progress Note: A&P Assessment and Plan (1) Osteomyelitis of spine: Code(s): M46.20 - Osteomyelitis of vertebra, site unspecified Status: Acute Assessment and Plan: MRI and CT showed high suspicion of osteomyelitis of L3-[address] with contrast as her renal function will not allow Currently on Zosyn an vanco Will try to initiate transfer to the surgeon (2) Acute metabolic encephalopathy: Code(s): G93.41 - Metabolic encephalopathy Status: Acute Assessment and Plan: Resolved at this time Most likely related to UTI IV antibiotics Zosyn and Vanco Head CT no acute findings, sinus disease Trend labs WBC are normal at 8.5 Trend mental status (3) Spinal stenosis: Code(s): M48.00 - Spinal stenosis, site unspecified Status: Inactive Assessment and Plan: Status post multiple surgical intervention open wound noted on the back Wound culture still pending Wound care consult, wound care instructions listed IV Zosyn and Vanc on board MRI of the spine not able to determine if the patient has osteomyelitis CT shows high suspicion for osteomyelitis/discitis L3-4 (4) HTN (hypertension): Code(s): I10 - Essential (primary) hypertension Status: Acute Assessment and Plan: BP 146/63 Continue home Amlodipine, metoprolol Trend BP Adjust medications as indicated (5) HLD (hyperlipidemia): Code(s): E78.5 - Hyperlipidemia, unspecified Status: Acute Assessment and Plan: lipid panel: Triglycerides 128, cholesterol 130, LDL 70, HDL 21 Started atorvastatin (6) Diabetes mellitus, type II: Code(s): E11.9 - Type 2 diabetes mellitus without complications Status: Acute Assessment and Plan: Glucose 107 Insulin sliding scale Continue home lantus 20 units HS Hold trulicity since it is nonformulary Trend glucose Adjust therapy as indicated (7) UTI (urinary tract infection): Code(s): N39.0 - Urinary tract infection, site not specified Status: Acute Assessment and Plan: UA Turbid yellow, 3+ leukocyte esterase, >75 WBC, WBC clumps Present, trace bacteria Broad-spectrum IV antibiotics Urine culture pending WBC 6.7 Trend output (8) Acute kidney injury: Code(s): N17.9 - Acute kidney failure, unspecified Status: Acute Assessment and Plan: BUN/Cr 28/2.10 Could be her new baseline Baseline Cr 1.30-1.50 IV fluids, DC at this time Trend labs Consider nephrology if no improvement Consider ultrasound if indicated (9) Anemia: Code(s): D64.9 - Anemia, unspecified Status: Acute Assessment and Plan: H/H 6.9/21.0 Anemia labs Iron 35, TIBC 196, % sat 18, Transferrin 140, Ferritin 1780, B12 >1000, Folate >20 Continue home folic acid, ferrous sulfate, and B12 Probably anemia of chronic disease as patient is also on retacrit Patient is [employer] witness, and will not allow blood transfusion (10) Neurogenic bladder: Code(s): N31.9 - Neuromuscular dysfunction of bladder, unspecified Status: Acute Assessment and Plan: Reports urinary retention Straight cathed x 3 at [facility] Start on tamsulosin Trend urine output PRN bladder scan (11) Hypomagnesemia: Code(s): E83.42 - Hypomagnesemia Status: Acute Assessment and Plan: MG 1.1 Replace with 4gm IV Trend labs Labs in the am Time Spent With Patient Time with patient: Greater than 35 minutes Subjective Date/time seen: 05/13/21 06:45 Interval history: Date/Time: 05/11/21 20:19 Chief Complaint: 71 years old female with past medical history of diabetes, hypertension spinal stenosis with multiple surgical intervention with open wound presented to the hospital with generalized weakness back pain confusion her confusion has significantly improv
--- NOTE | 2021-05-13 06:45 | P.PNIM_ITS ---
Progress Note: A&P Assessment and Plan (1) Osteomyelitis of spine: Code(s): M46.20 - Osteomyelitis of vertebra, site unspecified Status: Acute Assessment and Plan: * MRI and CT showed high suspicion of osteomyelitis of L3-4 * Unable to get CT with contrast as her renal function will not allow * Currently on Zosyn an vanco * Will try to initiate transfer to the surgeon (2) Acute metabolic encephalopathy: Code(s): G93.41 - Metabolic encephalopathy Status: Acute Assessment and Plan: * Resolved at this time * Most likely related to UTI * IV antibiotics Zosyn and Vanco * Head CT no acute findings, sinus disease * Trend labs * WBC are normal at 8.5 * Trend mental status (3) Spinal stenosis: Code(s): M48.00 - Spinal stenosis, site unspecified Status: Inactive Assessment and Plan: * Status post multiple surgical intervention * open wound noted on the back * Wound culture still pending * Wound care consult, wound care instructions listed * IV Zosyn and Vanc on board * MRI of the spine not able to determine if the patient has osteomyelitis * CT shows high suspicion for osteomyelitis/discitis L3-4 (4) HTN (hypertension): Code(s): I10 - Essential (primary) hypertension Status: Acute Assessment and Plan: * BP 146/63 * Continue home Amlodipine, metoprolol * Trend BP * Adjust medications as indicated (5) HLD (hyperlipidemia): Code(s): E78.5 - Hyperlipidemia, unspecified Status: Acute Assessment and Plan: * lipid panel: Triglycerides 128, cholesterol 130, LDL 70, HDL 21 * Started atorvastatin (6) Diabetes mellitus, type II: Code(s): E11.9 - Type 2 diabetes mellitus without complications Status: Acute Assessment and Plan: * Glucose 107 * Insulin sliding scale * Continue home lantus 20 units HS * Hold trulicity since it is nonformulary * Trend glucose * Adjust therapy as indicated (7) UTI (urinary tract infection): Code(s): N39.0 - Urinary tract infection, site not specified Status: Acute Assessment and Plan: * UA Turbid yellow, 3+ leukocyte esterase, >75 WBC, WBC clumps Present, trace bacteria * Broad-spectrum IV antibiotics * Urine culture pending * WBC 6.7 * Trend output (8) Acute kidney injury: Code(s): N17.9 - Acute kidney failure, unspecified Status: Acute Assessment and Plan: * BUN/Cr 28/2.10 * Could be her new baseline * Baseline Cr 1.30-1.50 * IV fluids, DC at this time * Trend labs * Consider nephrology if no improvement * Consider ultrasound if indicated (9) Anemia: Code(s): D64.9 - Anemia, unspecified Status: Acute Assessment and Plan: * H/H 6.9/21.0 * Anemia labs Iron 35, TIBC 196, % sat 18, Transferrin 140, Ferritin 1780, B12 >1000, Folate >20 * Continue home folic acid, ferrous sulfate, and B12 * Probably anemia of chronic disease as patient is also on retacrit * Patient is [employer] witness, and will not allow blood transfusion (10) Neurogenic bladder: Code(s): N31.9 - Neuromuscular dysfunction of bladder, unspecified Status: Acute Assessment and Plan: * Reports urinary retention * [facility]ight [facility] x 3 at [facility] * Start on tamsulosin * Trend urine output * PRN bladder
--- NOTE | 2021-05-13 06:46 | PC.NURSE ---
patient is religion and refuses to consent to blood tx.
[2021-05-13 07:31] LABS: Hematocrit 22.2 % (37.0-47.0); Hemoglobin 7.2 g/dL (12.0-15.0)
[2021-05-13] MEDS: MAGNESIUM SULF 4 GM/WATER100ML 4 GM/100 ML BAG IVPB (07:56)
[2021-05-13] MEDS: TAMSULOSIN HCL 0.4 MG CAPSULE PO (08:07)
[2021-05-13] MEDS: MINOCYCLINE HCL 50 MG CAPSULE 100 MG PO ×2 (08:07→21:02)
[2021-05-13] MEDS: amLODIPine BESYLATE 5 MG TABLET 10 MG PO (08:07)
[2021-05-13] MEDS: CYANOCOBALAMIN 1,000 MCG TABLET 1000 MCG PO (08:08)
[2021-05-13] MEDS: allopurinoL 100 MG TABLET PO (08:08)
[2021-05-13] MEDS: ASCORBIC ACID 500 MG TABLET PO ×2 (08:08→21:02)
[2021-05-13] MEDS: PANTOPRAZOLE 40 MG TABLET PO (08:08)
[2021-05-13] MEDS: FOLIC ACID 1 MG TABLET PO (08:08)
[2021-05-13] MEDS: METOPROLOL SUCCINATE EXT REL 100 MG TABCR PO (08:08)
[2021-05-13] MEDS: CHOLECALCIFEROL 1,000 UNITS TABLET 2000 UNITS PO (08:08)
[2021-05-13] MEDS: ASPIRIN 81 MG ENTERIC TABLET PO (08:08)
[2021-05-13] MEDS: SILVERGEL (ELTA) 45 ML 1 APPLIC TOPICAL (08:09)
[2021-05-13 09:27] VITALS: PULSE 86; O2SAT 93
[2021-05-13] MEDS: MENTHOL 10% / METHYL SALICYLATE 15% 57 GM TUBE 1 APPLIC TOPICAL (10:47)
[2021-05-13] MEDS: ACETAMINOPHEN 325 MG TABLET 650 MG PO (11:29)
[2021-05-13 12:04] LABS: Glucose Point of Care 222 mg/dl (65-105)
[2021-05-13] MEDS: INSULIN ASPART (*BKC) 100 UNITS/ML SUB-Q ×2 (12:54→17:20)
[2021-05-13 14:00] VITALS: BP 124/58; PULSE 84; RESP 16; TEMP 37.6; O2SAT 96
--- NOTE | 2021-05-13 15:00 | PM.TDS ---
Transfer Discharge Sum: Prov Provider Date of admission: 05/11/21 20:12 Primary care physician: Edwin Pereira, Admitting clinician: González Anderson MD Attending physician on admission: González Anderson Consults: 05/11/21 Wound/ET Consult Routine Reason for Consult:: wound on back Attending physician on discharge: González Anderson Discharging clinician: Han Monroe Anticipated date of transfer: 05/13/21 Receiving physician/facility: Dr Fletcher at [facility] DS: Admitting Diagnosis Discharge Date 05/14/21 Admitting Diagnosis UTI /acute metabolic encephalopathy/ osteomyelitis possible infected hardware DS: Discharge Diagnosis Discharge Diagnosis (1) Osteomyelitis of spine: Code(s): M46.20 - Osteomyelitis of vertebra, site unspecified Status: Acute Assessment and Plan: MRI and CT showed high suspicion of osteomyelitis of L3-[address] with contrast as her renal function will not allow Currently on Zosyn an vanco Will try to initiate transfer to the surgeon (2) Acute metabolic encephalopathy: Code(s): G93.41 - Metabolic encephalopathy Status: Acute Assessment and Plan: Resolved at this time Most likely related to UTI IV antibiotics Zosyn and Vanco Head CT no acute findings, sinus disease Trend labs WBC are normal at 8.5 Trend mental status (3) Spinal stenosis: Code(s): M48.00 - Spinal stenosis, site unspecified Status: Inactive Assessment and Plan: Status post multiple surgical intervention open wound noted on the back Wound culture still pending Wound care consult, wound care instructions listed IV Zosyn and Vanc on board MRI of the spine not able to determine if the patient has osteomyelitis CT shows high suspicion for osteomyelitis/discitis L3-4 (4) HTN (hypertension): Code(s): I10 - Essential (primary) hypertension Status: Acute Assessment and Plan: BP 146/63 Continue home Amlodipine, metoprolol Trend BP Adjust medications as indicated (5) HLD (hyperlipidemia): Code(s): E78.5 - Hyperlipidemia, unspecified Status: Acute Assessment and Plan: lipid panel: Triglycerides 128, cholesterol 130, LDL 70, HDL 21 Started atorvastatin (6) Diabetes mellitus, type II: Code(s): E11.9 - Type 2 diabetes mellitus without complications Status: Acute Assessment and Plan: Glucose 107 Insulin sliding scale Continue home lantus 20 units HS Hold trulicity since it is nonformulary Trend glucose Adjust therapy as indicated (7) UTI (urinary tract infection): Code(s): N39.0 - Urinary tract infection, site not specified Status: Acute Assessment and Plan: UA Turbid yellow, 3+ leukocyte esterase, >75 WBC, WBC clumps Present, trace bacteria Broad-spectrum IV antibiotics Urine culture pending WBC 6.7 Trend output (8) Acute kidney injury: Code(s): N17.9 - Acute kidney failure, unspecified Status: Acute Assessment and Plan: BUN/Cr 28/2.10 Could be her new baseline Baseline Cr 1.30-1.50 IV fluids, DC at this time Trend labs Consider nephrology if no improvement Consider ultrasound if indicated (9) Anemia: Code(s): D64.9 - Anemia, unspecified Status: Acute Assessment and Plan: H/H 6.9/21.0 Anemia labs Iron 35, TIBC 196, % sat 18, Transferrin 140, Ferritin 1780, B12 >1000, Folate >20 Continue home folic acid, ferrous sulfate, and B12 Probably anemia of chronic disease as patient is also on retacrit Patient is [employer] witness, and will not allow blood transfusion (10) Neurogenic bladder: Code(s): N31.9 - Neuromuscular dysfunction of bladder, unspecified Status: Acute Assessment and Plan: Reports urinary retention Straight cathed x 3 at [facility] Start on tamsulosin T
--- NOTE | 2021-05-13 15:00 | P.TS_ITS ---
Transfer Discharge Sum: Prov Provider Date of admission: 05/11/21 20:12 Primary care physician: Edwin Pereira, MD Admitting clinician: González Anderson MD Attending physician on admission: González Anderson Consults: 05/11/21 Wound/ET Consult Routine Reason for Consult:: wound on back Attending physician on discharge: González Anderson Discharging clinician: Han Monroe Anticipated date of transfer: 05/13/21 Receiving physician/facility: Dr Fletcher at [facility] DS: Admitting Diagnosis Discharge Date 05/14/21 Admitting Diagnosis UTI /acute metabolic encephalopathy/ osteomyelitis possible infected hardware DS: Discharge Diagnosis Discharge Diagnosis (1) Osteomyelitis of spine: Code(s): M46.20 - Osteomyelitis of vertebra, site unspecified Status: Acute Assessment and Plan: * MRI and CT showed high suspicion of osteomyelitis of L3-4 * Unable to get CT with contrast as her renal function will not allow * Currently on Zosyn an vanco * Will try to initiate transfer to the surgeon (2) Acute metabolic encephalopathy: Code(s): G93.41 - Metabolic encephalopathy Status: Acute Assessment and Plan: * Resolved at this time * Most likely related to UTI * IV antibiotics Zosyn and Vanco * Head CT no acute findings, sinus disease * Trend labs * WBC are normal at 8.5 * Trend mental status (3) Spinal stenosis: Code(s): M48.00 - Spinal stenosis, site unspecified Status: Inactive Assessment and Plan: * Status post multiple surgical intervention * open wound noted on the back * Wound culture still pending * Wound care consult, wound care instructions listed * IV Zosyn and Vanc on board * MRI of the spine not able to determine if the patient has osteomyelitis * CT shows high suspicion for osteomyelitis/discitis L3-4 (4) HTN (hypertension): Code(s): I10 - Essential (primary) hypertension Status: Acute Assessment and Plan: * BP 146/63 * Continue home Amlodipine, metoprolol * Trend BP * Adjust medications as indicated (5) HLD (hyperlipidemia): Code(s): E78.5 - Hyperlipidemia, unspecified Status: Acute Assessment and Plan: * lipid panel: Triglycerides 128, cholesterol 130, LDL 70, HDL 21 * Started atorvastatin (6) Diabetes mellitus, type II: Code(s): E11.9 - Type 2 diabetes mellitus without complications Status: Acute Assessment and Plan: * Glucose 107 * Insulin sliding scale * Continue home lantus 20 units HS * Hold trulicity since it is nonformulary * Trend glucose * Adjust therapy as indicated (7) UTI (urinary tract infection): Code(s): N39.0 - Urinary tract infection, site not specified Status: Acute Assessment and Plan: * UA Turbid yellow, 3+ leukocyte esterase, >75 WBC, WBC clumps Present, trace bacteria * Broad-spectrum IV antibiotics * Urine culture pending * WBC 6.7 * Trend output (8) Acute kidney injury: Code(s): N17.9 - Acute kidney failure, unspecified Status: Acute Assessment and Plan: * BUN/Cr 28/2.10 * Could be her new baseline * Baseline Cr 1.30-1.50 * IV fluids, DC at this time * Trend labs * Consider nephrology if no improvement * Consider ultrasound if indicated
[2021-05-13 16:43] LABS: Glucose Point of Care 204 mg/dl (65-105)
[2021-05-13 20:14] LABS: SARS-CoV-2 RNA PCR Positive
[2021-05-13] MEDS: ATORVASTATIN 40 MG TABLET PO (21:02)
[2021-05-13] MEDS: ENOXAPARIN 40 MG/0.4 ML SYRINGE SUB-Q (21:02)
[2021-05-13] MEDS: INSULIN GLARGINE (*BKC) 100 UNITS/ML 10 UNITS SUB-Q (21:02)
[2021-05-13] MEDS: OLANZapine DISPERTAB 5 MG PO (21:02)
[2021-05-13] MEDS: DOCUSATE SODIUM 100 MG CAPSULE PO (21:02)
[2021-05-13 21:10] VITALS: O2SAT 92
[2021-05-13 21:29] LABS: Glucose Point of Care 170 mg/dl (65-105)
[2021-05-13 22:00] VITALS: BP 151/57; PULSE 73; RESP 20; TEMP 36.3; O2SAT 98
[2021-05-14 05:06] LABS: Basophils Percent Auto 0.3 % (0.2-1.2); Eosinophils Absolute Auto 0.2 K/mm3 (0-0.3); Eosinophils Percent Auto 2.4 % (0-4.4); Immature Granulocyte Absolute 0.03 K/mm3 (0.00-0.031); Immature Granulocyte Percent A 0.4 % (0-0.5); Lymphocytes Absolute Auto 1.86 K/mm3 (0.9-3.2); Lymphocytes Percent Auto 25.1 % (18.3-44.2); Mean Corpuscular HGB Conc 32.4 g/dl (32-36); Mean Corpuscular Hemoglobin 28.6 pg (26-34); Mean Corpuscular Volume 88.2 fl (80-100); Mean Platelet Volume 9.9 fl (7.4-10.4); Monocytes Absolute Auto 0.9 K/mm3 (0.1-0.6); Neutrophils Absolute Auto 4.4 K/mm3 (1.3-6.7); Neutrophils Percent Auto 59.8 % (45.5-73.1); Platelet Count Result 146 k/mm3 (150-375); Red Blood Count 2.38 M/mm3 (4.2-5.4); Red Cell Distribution Width 18.1 % (11.5-14.5); White Blood Count 7.4 K/mm3 (4.5-10.0)
[2021-05-14 05:11] VITALS: BP 146/57; PULSE 84; RESP 18; TEMP 36.2; O2SAT 96
[2021-05-14 05:16] LABS: Hemoglobin 6.8 g/dL (12.0-15.0)
--- NOTE | 2021-05-14 05:21 | PC.NURSE ---
as patient leaving on ambulance stretcher, critical hgb of 6.[address] duran informed, patient is [employer] Witness and refuses all blood products.
[2021-05-14 06:11] LABS: Alanine Aminotransferase 15 U/L (4-35); Alkaline Phosphatase 51 U/L (38-126); Anion Gap 6 mmol/L (8-16); Aspartate Amino Transferase 27 U/L (14-36); Bilirubin,Total 0.7 mg/dL (0.2-1.3); Blood Urea Nitrogen 25 mg/dL (7-17); Calcium 8.5 mg/dL (8.4-10.2); Carbon Dioxide 25 mmol/L (22-30); Chloride 104 mmol/L (98-107); Estimated CRCL calculation 31 ml/min; Estimated Glomerular Filt Rate 32; Glucose 147 mg/dL (65-110); Potassium 3.8 mmol/L (3.4-5.0); Sodium 135 mmol/L (137-145)
== END 2021-05-14 05:15 | disposition short-term general hospital (02) | DRG 559 ==
LOC: ANHED 14:47 → ANH2MED 18:21
PROVIDERS: Internal Medicine; Admitting Provider Internal Medicine; Emergency Provider General Practice; PCP Internal Medicine; Visit Provider Nurse Practitioner
DX: T84.7XXA Infection and inflammatory reaction due to other internal orthopedic prosthetic devices, implants and grafts, initial encounter (principal); U07.1 COVID-19; G93.41 Metabolic encephalopathy; M46.26 Osteomyelitis of vertebra, lumbar region; N39.0 Urinary tract infection, site not specified; N17.9 Acute kidney failure, unspecified; D63.8 Anemia in other chronic diseases classified elsewhere; E83.42 Hypomagnesemia; E78.5 Hyperlipidemia, unspecified; E11.69 Type 2 diabetes mellitus with other specified complication; G89.29 Other chronic pain; I10 Essential (primary) hypertension; M48.00 Spinal stenosis, site unspecified; M54.50 Low back pain, unspecified; N31.9 Neuromuscular dysfunction of bladder, unspecified; Z79.82 Long term (current) use of aspirin; Z79.4 Long term (current) use of insulin; Z95.0 Presence of cardiac pacemaker; Z90.49 Acquired absence of other specified parts of digestive tract; Z98.1 Arthrodesis status
CPT/HCPCS: 36415; 51701; 70450; 71045; 72125; 72128; 72131; 72148; 80053; 80061; 81001; 82607; 82728; 82746; 82948; 83540; 83550; 83605; 83615; 83690; 83735; 84443; 84466; 84484; 85014; 85018; 85025; 85610; 85730; 86850; 86900; 86901; 87040; 87070; 87077; 87086; 87088; 87186; 87205; 87804; 93005; 96361; 96365; 99285; A9270; C9803; G0378; J0696; J1650; J1815; J2543; J3370; J3475; J7030; U0003; U0005